=== PATIENT | female | born 2000 ===

== ENCOUNTER 2024-08-07 12:02 | Emergency (ER) | payer SELFPAY ==
[2024-08-07 12:38] VITALS: RESP 16
[2024-08-07 14:05] LABS: Basophils # (A) 0.02 10*3/uL (0.00-0.10); Basophils % (A) 0.3 %; Eosinophils # (A) 0.13 10*3/uL (0.04-0.35); Eosinophils % (A) 1.6 %; HCT 37.9 % (37.2-46.3); HGB 12.9 g/dL (12.0-15.0); Lymphocytes # (A) 1.57 10*3/uL (0.90-5.00); Lymphocytes % (A) 19.8 %; MCH 29.5 pg (27.0-32.0); MCV 86.7 fL (80.0-97.0); Mean Platelet Volume 9.4 fL (9.5-12.2); Monocytes # (A) 0.38 10*3/uL (0.20-1.00); Monocytes % (A) 4.8 %; Neutrophils % (A) 73.1 %; Platelet Count 321 10*3/uL (140-440); RBC 4.37 10*6/uL (4.10-5.20); RDW 12.1 % (11.5-14.5); WBC 7.93 10*3/uL (4.50-10.00)
[2024-08-07 14:19] LABS: ALT 43 U/L (4-34); AST 30 U/L (14-36); African American GFR (CKD) >90 (>60 ml/min/1.73 sqM); Albumin 4.5 g/dL (3.5-5.0); Alkaline Phosphatase 84 U/L (38-126); Anion Gap 8 mmol/L; Blood Urea Nitrogen 6 mg/dL (7-17); Calcium 9.6 mg/dL (8.4-10.2); Carbon Dioxide 21 mmol/L (22-30); Chloride 106 mmol/L (98-107); Glucose 90 mg/dL (74-99); Non-African American GFR(CKD) >90 (>60 ml/min/1.73 sqM); Potassium 4.2 mmol/L (3.5-5.1); Sodium 135 mmol/L (137-145); Total Bilirubin 0.5 mg/dL (0.2-1.3); Total Protein 7.7 g/dL (6.3-8.2)
[2024-08-07] MEDS: SODIUM CHLORIDE 0.9% 1,000 ML IV ONE (14:26)
[2024-08-07] MEDS: PYRIDOXINE 100 MG/ML 1 ML VIAL IVP STA (14:47)
[2024-08-07] MEDS: diphenhydrAMINE 50 MG/ML 1 ML VIAL IVP STA (14:49)
[2024-08-07] MEDS: METOCLOPRAMIDE 5 MG/ML 2 ML VIAL IVP STA (14:49)
--- NOTE | 2024-08-07 14:55 | ED ---
Nausea/Vomiting/Diarrhea HPI - General Chief complaint: Nausea/Vomiting/Diarrhea Stated complaint: Nausea Time Seen by Provider: 08/07/24 13:46 Source: patient, EMS, RN notes reviewed Mode of arrival: EMS Limitations: language barrier - History of Present Illness Initial comments: This is a 24-year-old female who presents to the emergency department for pelvic pain, nausea, and vomiting. Patient presents with [employer]. Believes that she is 1 to 2 months and . Denies any vaginal bleeding or complications from prior pregnancies. She is largely [place]-speaking and [facility] helps to translate. MD complaint: nausea, vomiting, abdominal pain - Related Data Previous Rx's Medication Instructions Recorded Metoclopramide [Reglan] 10 mg PO Q6H PRN #30 tab 08/07/24 Vit No.179/Iron/Folic 1 each PO DAILY #30 tab 08/07/24 [ Tablet] Allergies Allergy/AdvReac Type Severity Reaction Status Date / Time No Known Allergies Allergy Verified 08/07/24 12:38 Review of Systems ROS Statement: Those systems with pertinent positive or pertinent negative responses have been documented in the HPI. ROS Other: All systems not noted in ROS Statement are negative. Past Medical History Past Medical History: No Reported History History of Any Multi-Drug Resistant Organisms: None Reported Past Surgical History: No Surgical Hx Reported Smoking Status: Never smoker Past Alcohol Use History: None Reported Past Drug Use History: None Reported General Exam Limitations: language barrier General appearance: alert, in no apparent distress Head exam: Present: atraumatic, normocephalic, normal inspection Respiratory exam: Present: normal lung sounds bilaterally. Absent: respiratory distress, wheezes, rales, rhonchi, stridor Cardiovascular Exam: Present: regular rate, normal rhythm Neurological exam: Present: alert, oriented X3, CN II-XII intact Psychiatric exam: Present: normal affect, normal mood Skin exam: Present: warm, dry, intact, normal color. Absent: rash Course Vital Signs 08/07/24 08/07/24 12:31 17:00 Temperature 98.6 F 98.1 F Pulse Rate 79 70 Respiratory 16 16 Rate Blood Pressure 115/76 140/80 O2 Sat by Pulse 99 99 Oximetry Medical Decision Making - Medical Decision Making This is a 24-year-old female who presents to the emergency department for nausea and vomiting in . Was pt. sent in by a medical professional or institution? @ -No Did you speak to anyone other than the patient for history? @ -No Did you review nursing and triage notes? @ -Yes, and I agree, it is accurate with regards to the patient's symptoms. Were old charts reviewed? @ -No Differential Diagnosis? @ -Differential Nausea and Vomiting: Gastroenteritis, cholecystitis, appendicitis, pancreatitis, migraine, benign positional vertigo, food borne illness, pyelonephritis, irritable bowel syndrome, influenza, Covid, GERD, incarcerated hernia, intestinal obstruction, this is not meant to be an all-inclusive list. EKG interpreted by me (3pts min.)? @ -Not obtained X-rays interpreted by me (1pt min.)? @ -Not obtained CT interpreted by me (1pt min.)? @ -Not obtained U/S interpreted by me (1pt. min.)? @ -Obstetrics ultrasound obtained. My interpretation identifies a single live intrauterine . What testing was considered but not performed? (CT, X-rays, U/S, labs)? Why? @ -None What meds were considered but not given? Why? @ -None Did you discuss the management of the patient with other professionals? @ -No Did you reconcile home meds? @ -No Was smoking cessation discussed for >3mins.? @ -No Was critical care preformed (if so, how long)? @ -No Were there social determinants of health that impacted care today? How? (Homelessness, low income, unemployed, alcoholism, drug addiction, transportation, low edu. Level, literacy, decrease access to med. care, [facility], rehab)? @ -No Was there de-escalation of care discussed even if they declined? (Discuss DNR or withdrawal of care, Hospice)? @ -No What co-morbidities impacted this encounter? (DM, HTN, Smoking, COPD, CAD, Cancer, CVA, Hep., AIDS, mental health diagnosis, sleep apnea, morbid obesity)? @ - Was patient admitted / discharged? @ -Discharged. [place] [address].1. Urinalysis negative for signs of infection. Obstetrics ultrasound obtained demonstrating a single viable intrauterine gestation measured at 6 weeks. Subchorionic h emorrhage is possibly present. Patient denies any bleeding. Symptoms well- controlled in the emergency department and she was tolerating oral intake. Prescription for Reglan and prenatals provided with dosing instructions reviewed. Patient discharged in custody of [facility] control. Case discussed with ED attending Dr. Galarza. Return precautions reviewed in depth, the patient is instructed to return to the emergency department with any new, worsening, or concerning symptoms. Patient verbalized understanding. Undiagnosed new problem with uncertain prognosis? @ -None Drug Therapy requiring intensive monitoring for toxicity (Heparin, Nitro, Insulin, Cardizem)? @ -None Were any procedures done? @ -None Diagnosis/symptom? @ -Nausea and vomiting in , pelvic pain in Acute, or Chronic, or Acute on Chronic? @ -Acute Uncomplicated (without systemic symptoms) or Complicated (systemic symptoms)? @ -Uncomplicated Side effects of treatment? @ -None Exacerbation, Progression, or Severe Exacerbation] @ -Not applicable Poses a threat to life or bodily function? @ -No - Lab Data Result diagrams: 08/07/24 13:57 08/07/24 13:57 Lab Results 08/07/24 08/07/24 08/07/24 Range/Units 13:50 13:55 13:57 WBC 7.93 (4.50-10.00) 10*3/uL RBC 4.37 (4.10-5.20) 10*6/uL Hgb 12.9 (12.0-15.0) g/dL Hct 37.9 (37.2-46.3) % MCV 86.7 (80.0-97.0) fL MCH 29.5 (27.0-32.0) pg MCHC 34.0 (32.0-37.0) g/dL Plt Count 321 (140-440) 10*3/uL MPV 9.4 L (9.5-12.2) fL Immature Gran % (Auto) 0.4 % Neutrophils % 73.1 % Lymphocytes % 19.8 % Monocytes % 4.8 % Eosinophils % 1.6 % Basophils % 0.3 % Immature Gran # 0.03 (0.00-0.04) 10*3/uL Neutrophils # 5.80 (1.80-7.70) 10*3/uL Lymphocytes # 1.57 (0.90-5.00) 10*3/uL Monocytes # 0.38 (0.20-1.00) 10*3/uL Eosinophils # 0.13 (0.04-0.35) 10*3/uL Basophils # 0.02 (0.00-0.10) 10*3/uL Sodium (137-145) mmol/L Potassium (3.5-5.1) mmol/L Chloride (98-107) mmol/L Carbon Dioxide (22-30) mmol/L Anion Gap mmol/L BUN (7-17) mg/dL Creatinine (0.52-1.04) mg/dL Est GFR (CKD-EPI)AfAm (>60 ml/min/1.73 sqM) Est GFR (CKD-EPI)NonAf (>60 ml/min/1.73 sqM) Glucose (74-99) mg/dL Calcium (8.4-10.2) mg/dL Total Bilirubin (0.2-1.3) mg/dL AST (14-36) U/L ALT (4-34) U/L Alkaline Phosphatase (38-126) U/L Total Protein (6.3-8.2) g/dL Albumin (3.5-5.0) g/dL HCG, Quant mIU/mL Urine Color Urine Appearance (Clear) Urine pH (5.0-8.0) Ur Specific [place] (1.001-1.035) Urine Protein (Negative) Urine Glucose (UA) (Negative) Urine Ketones (Negative) Urine Blood (Negative) Urine Nitrite (Negative) Urine Bilirubin (Negative) Urine Urobilinogen (<2.0) mg/dL Ur Leukocyte Esterase (Negative) Blood Type O Positive Blood Type Confirm O Positive Blood Type Recheck No Previous Record Bld Type Recheck Status CABO Indicated Antibody Screen NEGATIVE Spec Expiration Date 08/10/2024234908/07/24 08/07/24 Range/Units 13:57 14:54 WBC (4.50-10.00) 10*3/uL RBC (4.10-5.20) 10*6/uL Hgb (12.0-15.0) g/dL Hct (37.2-46.3) % MCV (80.0-97.0) fL MCH (27.0-32.0) pg MCHC (32.0-37.0) g/dL Plt Count (140-440) 10*3/uL MPV (9.5-12.2) fL Immature Gran % (Auto) % Neutrophils % % Lymphocytes % % Monocytes % % Eosinophils % % Basophils % % Immature Gran # (0.00-0.04) 10*3/uL Neutrophils # (1.80-7.70) 10*3/uL Lymphocytes # (0.90-5.00) 10*3/uL Monocytes # (0.20-1.00) 10*3/uL Eosinophils # (0.04-0.35) 10*3/uL Basophils # (0.00-0.10) 10*3/uL Sodium 135 L (137-145) mmol/L Potassium 4.2 (3.5-5.1) mmol/L Chloride 106 (98-107) mmol/L Carbon Dioxide 21 L (22-30) mmol/L Anion Gap 8 mmol/L BUN 6 L (7-17) mg/dL Creatinine 0.44 L (0.52-1.04) mg/dL Est GFR (CKD-EPI)AfAm >90 (>60 ml/min/1.73 sqM) Est GFR (CKD-EPI)NonAf >90 (>60 ml/min/1.73 sqM) Glucose 90 (74-99) mg/dL Calcium 9.6 (8.4-10.2) mg/dL Total Bilirubin 0.5 (0.2-1.3) mg/dL AST 30 (14-36) U/L ALT 43 H (4-34) U/L Alkaline Phosphatase 84 (38-126) U/L Total Protein 7.7 (6.3-8.2) g/dL Albumin 4.5 (3.5-5.0) g/dL HCG, Quant 37281.1 mIU/mL Urine Color Colorless Urine Appearance Clear (Clear) Urine pH 7.5 (5.0-8.0) Ur Specific [place] 1.008 (1.001-1.035) Urine Protein Negative (Negative) Urine Glucose (UA) Negative (Negative) Urine Ketones Negative (Negative) Urine Blood Negative (Negative) Urine Nitrite Negative (Negative) Urine Bilirubin Negative (Negative) Urine Urobilinogen <2.0 (<2.0) mg/dL Ur Leukocyte Esterase Negative (Negative) Blood Type Blood Type Confirm Blood Type Recheck Bld Type Recheck Status Antibody Screen Spec Expiration Date - Radiology Data Radiology results: report reviewed, image reviewed Disposition Clinical Impression: Nausea and vomiting during , Pelvic pain during Disposition: HOME SELF-CARE Instructions (If sedation given, give patient instructions): Nausea and Vomiting in (ED) Additional Instructions: Return to the emergency department with any new, worsening, or concerning symptoms. You can take the Zofran provided up to every 8 hours as needed for nausea and vomiting. Prescriptions: Vit No.179/Iron/Folic [ Tablet] 1 each PO DAILY #30 tab Metoclopramide [Reglan] 10 mg PO Q6H PRN #30 tab PRN Reason: Nausea And Vomiting Is patient prescribed a controlled substance at d/c from ED?: No Referrals: None,Stated [Primary Care Provider] - 1-2 days Time of Disposition: 16:31
[2024-08-07 15:14] LABS: Appearance,Urine Clear (Clear); Bilirubin,Urine Negative (Negative); Blood,Urine Negative (Negative); Color,Urine Colorless; Glucose,Urine (UA) Negative (Negative); Ketones,Urine Negative (Negative); Leukocyte Esterase,Urine Negative (Negative); Nitrite,Urine Negative (Negative); PH, Urine 7.5 (5.0-8.0); Protein,Urine Negative (Negative); Specific Gravity,Urine 1.008 (1.001-1.035); Urobilinogen,Urine <2.0 mg/dL (<2.0)
--- NOTE | 2024-08-07 16:22 | US ---
EXAMINATION TYPE: Transabdominal DATE OF EXAM: 08/07/2024 3:50 PM COMPARISON: NONE CLINICAL INDICATION: Female, 24 years old with history of Pelvic pain in ; pelvic cramping, denies bleeding TECHNIQUE: Transvaginal (TV) and Transabdominal (TA) with grayscale and color Doppler imaging includi ng first trimester . FINDINGS: EXAM MEASUREMENTS: GESTATIONAL AGE / DATING Physician Established: Not yet established Dates by LMP: 06/23/2024 (6 weeks/3 days) EDC: 03/30/2024 Dates by First Scan: No previous this is first scan Dates by Current Scan for: (6 weeks/0 days) EDC: 04/02/2024 MATERNAL ANATOMY Uterus: 9.1x4.7x6.7cm Right Ovary: 4.5x2.1x2.7cm Left Ovary: 1.6x2.3x2.3cm Post CDS / Adnexa: ?possible small amount of FF seen within rt adnexa Presence of free fluid: possible small amount Presence of corpus luteal cyst: ?Complex area seen within rt ovary: 1.8x1.5x2.0cm Presence of subchorionic bleed: Hypoechoic area seen: 1.4x0.4x1.6cm GESTATION / SURVEY CRL: 3.0cm 6 weeks/0 days) Gestational Sac morphology: Normal Yolk Sac (normal less than 6mm): 0.2cm Cardiac Activity/Heart Rate: 121pm Rhythm: Normal IUP: Viable IUP Date of LMP: 06/23/2024 Beta HcG (if available): 36742.1 IMPRESSION: 1. Single intrauterine gestation estimated at 6 weeks 0 days gestation based on crown-rump length. Ca rdiac activity measures 21 bpm. 2. Subchorionic hemorrhage may be adjacent to the gestational sac. [facility], , 08/07/2024 4:20 PM
[2024-08-07] MEDS: ONDANSETRON 4 MG ODT STARTER PACK 2 TAB BTL PO STA (16:55)
[2024-08-07 17:01] VITALS: BP 140/80; PULSE 70; TEMP 98.1
== END 2024-08-07 17:06 | disposition home or self-care (01) ==
LOC: EC 12:02
DX: O21.9 Vomiting of pregnancy, unspecified (principal); O26.891 Other specified pregnancy related conditions, first trimester; O99.331 Smoking (tobacco) complicating pregnancy, first trimester; I10 Essential (primary) hypertension; F17.200 Nicotine dependence, unspecified, uncomplicated; Z68.25 Body mass index [BMI] 25.0-25.9, adult; Z3A.01 Less than 8 weeks gestation of pregnancy
CPT/HCPCS: 36415; 86900; 86901; 80053; 85025; 86850; 81003; 84702; 76801; 99284; 96374; 96375; 96361; J1200; J2765; S0119; 76817